=== PATIENT | male | born 1965 ===

== ENCOUNTER 2024-11-11 17:25 | Inpatient (IN) | payer OTHER ==
[~2024-11-11] VITALS: Ht 188 cm; Wt 80.6 kg
[2024-11-11] MEDS ORDERED: NS 1,000 ML IV SCH (20:35)
[2024-11-11] MEDS ORDERED: OxyCODONE HCL 5 MG TAB PO PRN (20:35)
[2024-11-11] MEDS ORDERED: Ondansetron HCl 2 MG / ML 2ML Vial IV PRN (20:35)
[2024-11-11] MEDS ORDERED: FLU VACC TS2024-25(6MOS UP)/PF 45 MCG/0.5 ML SYRINGE IM ONE (20:40)
[2024-11-11] MEDS ORDERED: Gabapentin 300 MG Cap PO SCH (21:00)
[2024-11-11] MEDS ORDERED: Sennosides 8.6 MG Tab PO SCH (21:00)
[2024-11-11] MEDS ORDERED: Lactobacil 2-S.Thermo-Bifido 1 1 Cap PO SCH (21:00)
[2024-11-11] MEDS ORDERED: Vancomycin HCL 1,500 MG in NS 250 ML IV ONE (21:35)
[2024-11-11] MEDS ORDERED: Cefepime HCl 2,000 MG in NS 100 ML IV SCH (21:42)
[2024-11-11] MEDS ORDERED: HYDROCODONE-AC1 EAC7 (22:40)
[2024-11-11] MEDS ORDERED: AMIT50 PO (22:42)
[2024-11-11] MEDS ORDERED: ATOR40TA PO (22:42)
[2024-11-11] MEDS ORDERED: BUPR150ER PO (22:44)
[2024-11-11] MEDS ORDERED: GABA300 PO (22:44)
[2024-11-11] MEDS ORDERED: INSULIN LI100 UNIT/8 SC (22:46)
[2024-11-11] MEDS ORDERED: METO50ER PO (22:47)
[2024-11-11] MEDS ORDERED: LISI20 PO (22:47)
[2024-11-11] MEDS ORDERED: TRAZ50 PO (22:48)
[2024-11-11] MEDS ORDERED: Amitriptyline HCl 50 MG Tab PO SCH (23:40)
[2024-11-11] MEDS ORDERED: TraZODone HCl 100 MG Tab PO SCH (23:40)
[2024-11-12] VITALS (14 sets, daily range): BP systolic 112–162; BP diastolic 67–99
[2024-11-12] MEDS ORDERED: Vancomycin HCl 125 MG Cap PO SCH
[2024-11-12] MEDS ORDERED: Insulin Human Lispro 100 Units/ML 3ML Syringe SC SCH
--- NOTE | 2024-11-12 01:42 | NUR ---
ADMISSION NOTE PT CAME TO RM 356 AT 1927. PT AOX4, COOPERATIVE, & ABLE TO MAKE NEEDS KNOWN. PT APPEARED WITHDRAWN AND DEPRESSED. PT HAD WOUND ON L FOOT. PT STATED HE HAS HAD EPISODES OF DIZZINESS FOR AT LEAST A MONTH. EDUCATED PT ON BED ALARM AND CALL LIGHT, WITH EMPHASIS ON CALLING IF IN NEED OF TOILETING. PT VERBALIZED UNDERSTANDING. BED LOCKED IN LOWEST POSITION, AND BED ALARM ON. THIS RN TO ASSUME CARE.
[2024-11-12 04:57] LABS: BASOPHILS ABSOLUTE AUTO 0.09 K/mm3 (0.00-0.23); BASOPHILS PERCENT AUTO 1 % (0-2); EOSINOPHILS ABSOLUTE AUTO 0.26 K/mm3 (0.00-0.68); EOSINOPHILS PERCENT AUTO 3 % (0-6); Hematocrit 38.8 % (37.0-53.0); Hemoglobin 12.6 g/dL (13.5-17.5); IMMATURE GRAN ABSOLUTE AUTO 0.02 K/mm3 (0.00-0.10); IMMATURE GRAN PERCENT AUTO 0 % (0-1); LYMPHOCYTES ABSOLUTE AUTO 2.07 K/mm3 (0.84-5.20); LYMPHOCYTES PERCENT AUTO 26 % (21-46); MONOCYTES ABSOLUTE AUTO 0.78 K/mm3 (0.16-1.47); MONOCYTES PERCENT AUTO 10 % (4-13); Mean Corpuscular HGB 30.3 pg (26.0-34.0); Mean Corpuscular HGB Conc 32.5 g/dL (31.5-36.5); Mean Corpuscular Volume 93 fL (80-100); Mean Platelet Volume 8.2 fL (9.1-12.4); NEUTROPHILS ABSOLUTE AUTO 4.74 K/mm3 (1.96-9.15); NEUTROPHILS PERCENT AUTO 60 % (41-73); Platelet Count 311 K/mm3 (150-400); RDW Coefficient Variation 14.1 % (11.7-14.2); RDW Standard Deviation 47.8 fL (35.1-46.3); Red Blood Cell Count 4.16 M/mm3 (4.30-5.90); White Blood Cell Count 7.96 K/mm3 (4.00-11.30)
[2024-11-12 05:20] LABS: International Normalized Ratio 1.03
[2024-11-12 05:27] LABS: Albumin, Blood 2.3 g/dL (3.4-5.0); Albumin/Globulin Ratio 0.5 (0.8-1.8); Bilirubin, Total 0.3 mg/dL (0.1-1.0); Bun/Creatinine Ratio 18.1 (12.0-20.0); Calcium, Blood 8.9 mg/dL (8.5-10.1); Creatinine, Blood 0.55 mg/dL (0.60-1.20); Globulin, Blood 4.6 g/dL (2.2-4.0); Total Protein, Blood 6.9 g/dL (6.4-8.2)
[2024-11-12] MEDS ORDERED: Vancomycin HCL 750 MG in NS 250 ML IV SCH (06:42)
--- NOTE | 2024-11-12 08:03 | NUR ---
SHIFT SUMMARY PT HAS BEEN RESTING IN BED OVERNIGHT. PT IS AOX4, CALM AND COOPERATIVE. PT WAS NOTICEABLY WITHDRAWN TOWARDS START OF NIGHT, BUT NOW, HE SEEMS TO BE IN A BETTER MOOD. PT HAS BEEN CHAIRFAST. PT HAS BEEN ANXIOUS ABOUT UPCOMING PROCEDURE. OTHERWISE, NO ACUTE EVENTS OVERNIGHT.
--- NOTE | 2024-11-12 08:47 | NUR ---
Pt laying in bed awake, a/ox4, pleasant and cooperative with care, follows commands well, reports 8/10 pain in left foot, lungs are clear a bit dim in bases, resp even and unlabored, no cough noted, on r/a, hrr, no edema noted, ppp faint, piv x2 to land rfa, sites are clear and patent, btx, reports last bm 2 days ago, voids via urina, skin has wound to left foot with dressing, strong odor, maew, weak, opal, call light in reach.
[2024-11-12] MEDS ORDERED: Atorvastatin 40 MG Tab PO SCH (09:00)
[2024-11-12] MEDS ORDERED: AmLODIPine Besylate 5 MG Tab PO SCH (09:00)
[2024-11-12] MEDS ORDERED: Metoprolol Succinate 50 MG TABCR PO SCH (09:00)
[2024-11-12] MEDS ORDERED: Lisinopril 10 MG Tab PO SCH (09:00)
[2024-11-12] MEDS ORDERED: Lidocaine HCl 2% 10 ML SDA ONE (10:03)
[2024-11-12] MEDS ORDERED: Bupivacaine 0.5% HCl 5 MG/ML 30MLVIAL ONE ×2 (10:03→11:13)
[2024-11-12] MEDS ORDERED: propofoL 20 ML IV ONE (11:12)
[2024-11-12] MEDS ORDERED: Ondansetron HCl 2 MG / ML 2ML Vial ONE (11:12)
[2024-11-12] MEDS ORDERED: Dexamethasone Sod Phos 10 MG/ML 1ML VIAL ONE (11:12)
[2024-11-12] MEDS ORDERED: Lidocaine 2%-Epineph 1:200000 20 ML SDV ONE (11:14)
[2024-11-12] MEDS ORDERED: Sodium Chloride 0.9% Inj 10 ML IV ONE (11:16)
[2024-11-12] MEDS ORDERED: Midazolam HCl 1MG / ML 2ML Vial ONE (11:17)
[2024-11-12] MEDS ORDERED: FentaNYL Citrate 50 MCG/ML 2 ML Injection ONE (11:17)
[2024-11-12] MEDS ORDERED: Lactated Ringer's 1,000 ML IV SCH (11:50)
--- NOTE | 2024-11-12 11:50 | NUR ---
PT HAS 20G IV RFA THAT FLOWS WELL TO GRAVITY, SHOWS NO SIGNS OF INFILTRATION.
[2024-11-12] MEDS ORDERED: Midazolam HCl 1MG / ML 2ML Vial IV ONE (12:05)
[2024-11-12] MEDS ORDERED: ePHEDrine Sulfate 50 MG/ML 1ML Injection ONE (12:46)
[2024-11-12] MEDS ORDERED: Phenylephrine HCl 100 MCG/ML-NS 10MLSYR (1MG/10ML) ONE (12:49)
--- NOTE | 2024-11-12 14:15 | NUR ---
Pt returned to room from OR in good condition, sitting on the side of the bed to void at this time. vs stable, call light in reach.
[2024-11-12] MEDS ORDERED: OxyCODONE HCL 5 MG TAB PO PRN (18:50)
[2024-11-12] MEDS ORDERED: FentaNYL Citrate 50 MCG/ML 2 ML Injection IV PRN (18:50)
[2024-11-12] MEDS ORDERED: Acetaminophen 325 MG TABLET PO PRN (18:50)
--- NOTE | 2024-11-12 19:39 | NUR ---
pt not getting good relief with his pain meds, called Dr. lynn orders for increased meds, gave a dose of fentanyl with good relief, drained 40mls out of moustapha, no further changes this shift, call light in reach.
[2024-11-12 22:07] LABS: Vancomycin, Trough 14.4 ug/mL (5.0-10.0)
[2024-11-12] MEDS ORDERED: Vancomycin HCL 1,000 MG in NS 250 ML IV SCH (22:30)
--- NOTE | 2024-11-13 04:04 | NUR ---
SHIFT SUMMARY PATIENT HAD NO ACUTE CHANGES. ALERT, ORIENTED, AND BEDREST. DENIES CHEST PAIN, SOB, AND N/V. VSS/AFEBRILE. PIV INTACT. NS INFUSING @ 100 mL/HR. IV ABX INFUSED. JAIME DRAIN LEFT FOOT. REPORTED LEFT FOOT PAIN AND OXYCODONE 10 MG GIVEN PER EMAR. CALL LIGHT IN REACH. BED IN LOWEST POSITION. WILL CONTINUE TO MONITOR UNTIL DAY SHIFT NURSE ASSUMES CARE.
[2024-11-13 05:14] VITALS: BP 143/86
[2024-11-13] MEDS ORDERED: Insulin Human Lispro 100 Units/ML 3ML Syringe SC SCH (07:30)
[2024-11-13 07:44] VITALS: BP 156/99
[2024-11-13] MEDS ORDERED: Arginine/Glutamine/Calcium Hmb 1 Packet PO SCH (09:00)
[2024-11-13] MEDS ORDERED: Heparin Sodium 1000 Units/ML 10ML MDV ONE ×2 (13:16→16:04)
[2024-11-13] MEDS ORDERED: NS 1,000 ML IV ONE ×2 (13:16→15:53)
[2024-11-13] MEDS ORDERED: NS 250 ML IV ONE ×2 (13:16→16:05)
[2024-11-13] MEDS ORDERED: Nitroglycerin 2 MG/20 ML BTL ONE (13:17)
[2024-11-13] MEDS ORDERED: Midazolam HCl 1MG / ML 2ML Vial ONE (15:52)
[2024-11-13] MEDS ORDERED: FentaNYL Citrate 50 MCG/ML 2 ML Injection ONE (15:53)
--- NOTE | 2024-11-13 16:38 | NUR ---
PT OUT TO [facility] AT 1545 FOR REVASCULARIZATION. RECOVER TO PCU 10. CALLED REPORT TO RN FOR PCU 10 AT [id number]
[2024-11-13 16:44] VITALS: BP 126/93
[2024-11-13 17:00] VITALS: BP 124/85
[2024-11-13 17:15] VITALS: BP 156/98
--- NOTE | 2024-11-13 18:22 | NUR ---
PCU Arrival / End of Shift Pt brought to PCU-10 by bed from label stamper @ approx 1645. Pt A&O x4. VSS. Spo2 > 92% on RA. Monitor showing SR. Pt laying flat in bed. R groin access site w/ transparent dressing in place. Site WNL. Pt w/ L foot wound, dressed. JAIME drain to LLE, draining red output. JAIME drain expanded, unableto remain compressed for suction. Pt reporting lower back & hip pain, medicated per emar. Pt then able to go to sleep after.
[2024-11-13 20:23] VITALS: BP 128/89
[2024-11-13] MEDS ORDERED: Vancomycin HCL 1,250 MG in NS 250 ML IV SCH (23:30)
[2024-11-14 00:12] VITALS: BP 141/83
[2024-11-14 03:49] VITALS: BP 128/90
[2024-11-14 05:02] LABS: BASOPHILS ABSOLUTE AUTO 0.09 K/mm3 (0.00-0.23); BASOPHILS PERCENT AUTO 1 % (0-2); EOSINOPHILS ABSOLUTE AUTO 0.27 K/mm3 (0.00-0.68); EOSINOPHILS PERCENT AUTO 3 % (0-6); Hematocrit 35.8 % (37.0-53.0); Hemoglobin 11.5 g/dL (13.5-17.5); IMMATURE GRAN ABSOLUTE AUTO 0.03 K/mm3 (0.00-0.10); IMMATURE GRAN PERCENT AUTO 0 % (0-1); LYMPHOCYTES ABSOLUTE AUTO 2.75 K/mm3 (0.84-5.20); LYMPHOCYTES PERCENT AUTO 31 % (21-46); MONOCYTES ABSOLUTE AUTO 0.97 K/mm3 (0.16-1.47); MONOCYTES PERCENT AUTO 11 % (4-13); Mean Corpuscular HGB 30.1 pg (26.0-34.0); Mean Corpuscular HGB Conc 32.1 g/dL (31.5-36.5); Mean Corpuscular Volume 94 fL (80-100); Mean Platelet Volume 8.6 fL (9.1-12.4); NEUTROPHILS ABSOLUTE AUTO 4.71 K/mm3 (1.96-9.15); NEUTROPHILS PERCENT AUTO 53 % (41-73); Platelet Count 300 K/mm3 (150-400); RDW Coefficient Variation 14.6 % (11.7-14.2); RDW Standard Deviation 48.4 fL (35.1-46.3); Red Blood Cell Count 3.82 M/mm3 (4.30-5.90); White Blood Cell Count 8.82 K/mm3 (4.00-11.30)
[2024-11-14 05:48] LABS: Bun/Creatinine Ratio 33.3 (12.0-20.0); Creatinine, Blood 0.51 mg/dL (0.60-1.20); Potassium, Blood 4.1 mmol/L (3.5-5.5)
[2024-11-14 07:30] VITALS: BP 141/86
[2024-11-14 15:23] VITALS: BP 124/82
--- NOTE | 2024-11-14 16:59 | NUR ---
SHIFT/TRANSFER SUMMARY POD2 L TMA, A/OX4, VSS, TOLERATING PO, PAIN MANAGED PER EMAR, JAIME DRAIN NOT SUCTIONING BUT PODIETRY IS AWARE AND PLANS TO CHANGE THE DRESSING AND REMOVE THE JAIME TODAY. STATUS CHANGED TO MED STATUS AND MOVED UP TO ROOM 344, REPORT GIVEN TO ACCEPTING RN. TRANSPORTED VIA WC WITH ALL HIS POSSESSIONS, MEDS, AND CHART.
--- NOTE | 2024-11-14 17:49 | NUR ---
SHIFT SUMMARY PT A&OX4. PT IN CONTACT FOR HX OF MRSA AND CDIFF. PT ADMITTED DUE TO OSTEOMYLITIS. PT GOT TRANSFERED TO ROOM AT 1645. PT TRANSFERED BY WHEELCHAIR AND WAS A STAND R FOOT PIVOT TO BED. GOT REPORT FROM PCU NURSE. PCU NURSE REPORTED "SURGEON WILL STOP BY TODAY TO REMOVE JAIME DRAIN AND CHANGE DRESSING. RN REPORTED DRAIN ISNT SUCTIONING ADEQUATE." PT IS ACHS BLOOD SUGARS, SUGARS COORECTED WITH SLIDING SCALE. PT EATS ADEQUATE. PT ON TELE. PT RECEIVING ANTIBIOTIC PO AND IV. PT ORIENTED TO ROOM/UNIT/FALL PRECAUTIONS. PT IN BED. BED IN LOWEST POSITION. CALL LIGHT IN REACH. PERSONAL BELONGINGS WITH PT.
[2024-11-14 19:23] VITALS: BP 130/82
[2024-11-14 23:43] LABS: Vancomycin, Trough 16.5 ug/mL (5.0-10.0)
[2024-11-14 23:59] VITALS: BP 125/81
--- NOTE | 2024-11-15 03:21 | NUR ---
SHIFT SUMMARY PT IS A/O X4, ABLE TO MAKE HIS NEEDS KNOWN AND COOPERATIVE WITH CARE. STAND PIVOT TO THE RESTROOM, URINAL BY THE BEDSIDE DURING NIGHT HOURS. HS B. TELE:SR @95.@, PT REPORTS 7-05/02 LEFT FOOT PAIN, MEDICATED WITH OXYCODONE AND FENTANYL ORDERED. PT REFUSED TYLENOL PO PRN @HS. LEFT FOOT DRESSING C/D/I. PLAN IS FOR THE SURGEON TO COMPLETE THE FIRST DRESSING CHANGE AND REMOVE THE JAIME DRAIN D/T DISFUNCTION. JAIME DRAIN SCANT AMOUNT OF SANGUINEOUS DRAINAGE NOTED. BED AT THE LOWEST POSITION. CALL LIGHT W/I REACH.
[2024-11-15 04:22] VITALS: BP 143/80
[2024-11-15 07:40] VITALS: BP 109/87
[2024-11-15 12:40] VITALS: BP 110/82
[2024-11-15 15:44] VITALS: BP 116/72
--- NOTE | 2024-11-15 18:17 | NUR ---
SHIFT SUMMARY PT A&OX4. PT IN CONTACT [facility] FOR HX OF MRSA AND CDIFF. PT ADMITTED DUE TO OSTEOMYLITIS. PT REPORTS PAIN GENERALIZED ACUTE/CHRONIC, PAIN MANAGED PER EMAR. PT WORKED WITH PHYSICAL THERAPY TODAY. PT IS NON WEIGHT BEARING ON L FOOT, BUT ABLE TO STAND PIVOT ON R FOOT AND L HEEL TOUCH. PT BED ALARM ON, DUE TO SOME IMPULSIVITY. SURGEON CAME THIS AM AND REMOVED JAIME DRAIN AND DID DRESSING CHANGE ON L HEEL. NERY WRAP INTACT, NO SIGN OF BLEEDING. SURGEON REPORTED "RESUME DRESSING CHANGE TOMORROW." PT CONT. AND USES URINAL AND BEDPAN. PT EATS ADEQUATE. PT ACHS BLOOD SUGARS, SUGARS CORRECTED WITH SLIDING SCALE. PT IN BED, BED IN LOWEST POSITION, CALL LIGHT IN REACH. VSS. PT GETTING ORAL AND IV ANTIBIOTICS. PT ON TELE.
[2024-11-15 19:15] VITALS: BP 127/86
[2024-11-15 23:49] VITALS: BP 122/81
--- NOTE | 2024-11-16 03:01 | NUR ---
SHIFT SUMMARY NO ACUTE EVENTS DURING THIS SHIFT. LEFT FOOT DRESSING C/D/I. PAIN MANAGED PER EMAR T/O THE NIGHT. PT CONTINUES ON ISO D/T C-DIFF AND MRSA RULEOUT. HS B. TELE: SR @88. PO AND IV VANCO ADMINISTERED ORDERED. BED AT THE LOWEST POSITION, CALL LIGHT W/I REACH. PT IS ABLE TO MAKE HIS NEEDS KNOWN AND IS COOPERATIVE WITH CARE.
[2024-11-16 04:01] VITALS: BP 122/79
[2024-11-16 07:39] VITALS: BP 117/77
[2024-11-16 11:51] VITALS: BP 133/92
[2024-11-16 15:54] VITALS: BP 117/88
--- NOTE | 2024-11-16 18:15 | NUR ---
MILA SANCHEZ- PT WORKED WITH PHYSICAL THERAPY TODAY. HE IS A 1PA TO [facility] [place] AND IS NWB ON THE LLE. PT WILL REQUIRE A WC FOR AMBULATION NEEDS PER THERAPY. PT HAS CONVEYED CONCERN OVER KEEPING THE WOUND DRESSING CLEAN ONCE HE GOES HOME. PT HAS BEEN MEDICATED FOR PAIN Q4 WITH PO PAIN MEDS. PER THE PT IT WORKS WELL, BUT WEARS OFF TOOO SOON. PT IS CURRENTLY SITTING UP AT THE EOB WITH THE CALL LIGHT IN REACH EATING HIS DINNNER, NO S&S HILL DISTRESS NOTED..
[2024-11-16 19:20] VITALS: BP 129/89
[2024-11-16] MEDS ORDERED: Insulin Glargine-Yfgn 100 Unit/mL 3 ML SYR SC SCH (21:00)
--- NOTE | 2024-11-17 03:06 | NUR ---
SHIFT SUMMARY NO ACUTE EVENTS OVERNIGHT. PT C/O 7-05/02 NECK AND SHOULDER PAIN. MEDICATED PER EMAR WITH OXYCODONE PRN 10MG Q4HRS. PT REPORTS EFFECTIVE. HS B. PT USING BEDSIDE URINAL DURING NIGHT HRS. A/O X4, ABLE TO MAKE HIS NEEDS KNOWN AND COOPERATIVE WITH CARE. BED AT THE LOWEST POSITION, CALL LIGHT W/I REACH.
[2024-11-17 04:31] VITALS: BP 111/78
[2024-11-17 07:37] VITALS: BP 115/78
[2024-11-17] MEDS ORDERED: AMLO5 PO (11:40)
[2024-11-17] MEDS ORDERED: BASAGLAR K100 UNIT/1 SC (11:41)
--- NOTE | 2024-11-17 13:08 | NUR ---
DISCHARGE SUMMARY PATIENT WITH NO ACUTE ISSUES TODAY DURING SHIFT. HE IS AOX4 COOPERATIVE WITH CARE. EDUCATION ON WOUND CARE TO BE DONE BY [facility] PREVIOUSLY DONE RECCOMENDED, HE V/U. NOTIFIED PATIENT HE NEEDS TO CALL CLINIC TODAY TO SET UP FOLLOW UP APPOINTMENT. MEDICATION EDUCATION AND MEDICATION PACKET PRINTED AND SIGNED BY PATIENT. PATIENT LEFT UNIT WITH [facility] AT 1308 VIA WHEELCHAIR.
== END 2024-11-17 13:09 | disposition home health service (06) | DRG 239 ==
LOC: MEDS 17:25 → PCU 11-13 16:38 → MEDS 11-14 16:43
PROVIDERS: Internal Medicine; Nurse Practitioner Acute Care; Podiatrist Foot & Ankle Surgery; ADMIT Family Medicine
PROC: 0Y6N0Z9 Detachment at Left Foot, Partial 1st Ray, Open Approach (ICD-10-PCS; 2024-11-12)
PROC: 0Y6N0ZB Detachment at Left Foot, Partial 2nd Ray, Open Approach (ICD-10-PCS; 2024-11-12)
PROC: 0Y6N0ZC Detachment at Left Foot, Partial 3rd Ray, Open Approach (ICD-10-PCS; 2024-11-12)
PROC: 0Y6N0ZD Detachment at Left Foot, Partial 4th Ray, Open Approach (ICD-10-PCS; 2024-11-12)
PROC: 0Y6N0ZF Detachment at Left Foot, Partial 5th Ray, Open Approach (ICD-10-PCS; 2024-11-12)
PROC: 0QBP0ZX Excision of Left Metatarsal, Open Approach, Diagnostic (ICD-10-PCS; principal; 2024-11-12 12:00)
DX: E11.52 Type 2 diabetes mellitus with diabetic peripheral angiopathy with gangrene (principal); A48.0 Gas gangrene; A04.72 Enterocolitis due to Clostridium difficile, not specified as recurrent; M00.9 Pyogenic arthritis, unspecified; M86.8X7 Other osteomyelitis, ankle and foot; M84.475A Pathological fracture, left foot, initial encounter for fracture; F11.20 Opioid dependence, uncomplicated; E44.0 Moderate protein-calorie malnutrition; Z68.1 Body mass index [BMI] 19.9 or less, adult; E11.621 Type 2 diabetes mellitus with foot ulcer; J43.9 Emphysema, unspecified; E11.69 Type 2 diabetes mellitus with other specified complication; D64.9 Anemia, unspecified; M06.9 Rheumatoid arthritis, unspecified; E78.5 Hyperlipidemia, unspecified; B95.8 Unspecified staphylococcus as the cause of diseases classified elsewhere; F17.210 Nicotine dependence, cigarettes, uncomplicated; I10 Essential (primary) hypertension; Z79.899 Other long term (current) drug therapy; Z79.4 Long term (current) use of insulin; Z89.422 Acquired absence of other left toe(s); Z71.6 Tobacco abuse counseling; L97.529 Non-pressure chronic ulcer of other part of left foot with unspecified severity; E11.40 Type 2 diabetes mellitus with diabetic neuropathy, unspecified; Z91.199 Patient's noncompliance with other medical treatment and regimen due to unspecified reason
CPT/HCPCS: 36415; 73700; 76937; 80048; 80053; 80202; 82947; 85025; 85610; 86850; 86900; 86901; 87071; 87075; 87205; 88305; 88307; 88311; 93926; 97110; 97116; 97161; 97530; 99152; 99153; A9270; C1760; C1769; C1887; C1894; J0692; J1100; J1644; J1815; J2003; J2250; J2371; J2405; J2704; J3010; J3370; J7030; J7050; Q9967